=== PATIENT | female | born 1990 | race Two or more races ===

== ENCOUNTER 2020-11-13 04:19 | Day surgery (SDC) | payer BC ==
[2020-11-13] MEDS ORDERED: ROCURONIUM BROMIDE 50 MG/5 ML SYRINGE ONE (07:29)
[2020-11-13] MEDS ORDERED: LIDOCAINE HCL/PF 2% SDV 5ML VIAL ONE (07:29)
[2020-11-13] MEDS ORDERED: fentaNYL CITRATE 250 MCG/5 ML VIAL ONE (07:30)
[2020-11-13] MEDS ORDERED: PROPOFOL 20 ML ONE (07:30)
[2020-11-13] MEDS ORDERED: MIDAZOLAM HCL 2 MG/2 ML SINGLE DOSE VIAL ONE (07:30)
[2020-11-13] MEDS ORDERED: SUCCINYLCHOLINE CHLORIDE 200 MG/10 ML SYRINGE ONE (07:30)
[2020-11-13] MEDS ORDERED: ACETAMINOPHEN 325 MG TABLET (FP) PO PRN (07:58)
[2020-11-13] MEDS ORDERED: IBUPROFEN 600 MG TABLET (FP) PO PRN (07:58)
[2020-11-13] MEDS ORDERED: LACTATED RINGERS SOLUTION 1,000 ML IV SCH (08:00)
[2020-11-13] MEDS ORDERED: DEXAMETHASONE SOD PHOSPHATE 4 MG/1 ML VIAL ONE (08:18)
[2020-11-13] MEDS ORDERED: NEOSTIGMINE METHYLSULFATE 0.5 MG/ML - 10 ML MDV ONE (08:52)
[2020-11-13] MEDS ORDERED: GLYCOPYRROLATE 0.2 MG/1 ML VIAL ONE (08:52)
[2020-11-13] MEDS ORDERED: ceFAZolin SODIUM 1 GM VIAL ONE (08:56)
[2020-11-13] MEDS ORDERED: oxyCODONE HCL 5 MG TABLET PO PRN (12:36)
[2020-11-13] MEDS ORDERED: ONDANSETRON 4 MG/2 ML VIAL IVPUSH PRN (12:36)
[2020-11-13 14:00] VITALS: BP 109/62; PULSE 73; TEMP 97.8
== END 2020-11-13 14:17 | disposition home or self-care (01) ==
LOC: JASU-SURG 04:19
PROVIDERS: ATTEND Obstetrics & Gynecology
PROC: 0UT74ZZ Resection of Bilateral Fallopian Tubes, Percutaneous Endoscopic Approach (ICD-10-PCS; principal; 2020-11-13 07:30)
PROC: 0UC98ZZ Extirpation of Matter from Uterus, Via Natural or Artificial Opening Endoscopic (ICD-10-PCS; 2020-11-13 07:30)
PROC: 0UDB8ZZ Extraction of Endometrium, Via Natural or Artificial Opening Endoscopic (ICD-10-PCS; 2020-11-13 07:30)
DX: Z30.2 Encounter for sterilization (principal)
CPT/HCPCS: 36415; 81025; 84703; 86850; 86900; 86901; 86922; 88300-TC; 88302-TC; 88305-TC; 94760